=== PATIENT | male | born 1965 | race Hispanic/Latino ===

== ENCOUNTER → 2020-08-29 | Outpatient (CLI) | payer OTHER ==
[~2020-08-29] MED LIST: AMLODIPINE PO; PANT40TA54 PO; RANI150C4 PO; SOTA80TA PO
== END | disposition home or self-care (01) ==
LOC: RAH 10:00
PROVIDERS: ATTEND Internal Medicine Cardiovascular Disease
DX: Z13.6 Encounter for screening for cardiovascular disorders (principal)
CPT/HCPCS: 75571